=== PATIENT | female | born 1940 | race African-American/Black ===

== ENCOUNTER 2018-05-07 21:51 | Inpatient (IN) | payer MEDICARE, OTHER, MEDICAID ==
[2018-05-08] MEDS: SOD CHLORIDE 0.9% 500 ML IV (00:15)
[2018-05-08 01:03] LABS: ADD MAN DIFF? NO
[2018-05-08 01:08] LABS: WHITE BLOOD COUNT 6.2 10^3/ul (4.8-10.8)
[2018-05-08 01:08] LABS: ABNORMAL IP MESSAGE 1; BASOPHILS % 0.3 % (0.0-2.0); EOSINOPHILS % 0.2 % (0.0-7.0); HEMATOCRIT 47.6 % (37.0-47.0); HEMOGLOBIN 15.3 g/dl (12.0-16.0); LYMPHOCYTES # 0.4 10^3/ul (0.8-2.9); LYMPHOCYTES % 5.8 % (15.0-51.0); MEAN CORPUSCULAR HEMOGLOBIN 27.5 pg (29.0-33.0); MEAN CORPUSCULAR HGB CONC 32.1 g/dl (32.0-37.0); MEAN CORPUSCULAR VOLUME 85.5 fl (82.0-101.0); MEAN PLATELET VOLUME 11.3 fl (7.4-10.4); MONOCYTE # 0.3 10^3/ul (0.3-0.9); MONOCYTES % 4.5 % (0.0-11.0); NEUTROPHIL # 5.4 10^3/ul (1.6-7.5); NEUTROPHILS % 87.7 % (39.0-77.0); PLATELET COUNT 140 10^3/UL (140-415); RED BLOOD COUNT 5.57 10^6/ul (4.20-5.40); RED CELL DISTRIBUTION WIDTH 13.7 % (11.5-14.5)
[2018-05-08 01:09] LABS: POSITIVE DIFF @See below
[2018-05-08 01:26] LABS: INR 0.85; PROTIME 11.7 Sec (11.9-14.9); PT RATIO 0.9
[2018-05-08 01:27] LABS: PARTIAL THROMBOPLASTIN TIME 22.2 Sec (23.0-35.0)
[2018-05-08 01:39] LABS: ALANINE AMINOTRANSFERASE 37 IU/L (13-69); ALBUMIN/GLOBULIN RATIO 1.33; ALKALINE PHOSPHATASE 102 IU/L (42-121); ASPARTATE AMINO TRANSFERASE 16 IU/L (15-46); BILIRUBIN,INDIRECT 0.5 mg/dl (0-1.1); BILIRUBIN,TOTAL 0.5 mg/dl (0.2-1.3); BLOOD UREA NITROGEN 25 mg/dl (7-20); CALCIUM 10.9 mg/dl (8.4-10.2); CHLORIDE 92 mmol/L (97-110); GLUCOSE 352 mg/dl (70-220); POTASSIUM 3.1 mmol/L (3.5-5.1); SODIUM 145 mmol/L (135-144)
[2018-05-08 01:44] LABS: LACTIC ACID 2.2 mmol/L (0.5-2.0)
[2018-05-08 01:46] LABS: ANION GAP 8 (5-13)
[2018-05-08 01:49] LABS: CARBON DIOXIDE 45 mmol/L (21-31)
[2018-05-08 01:50] LABS: TROPONIN-I 0.026 ng/ml (0.000-0.120)
[2018-05-08 02:05] LABS: ACETAMINOPHEN < 10.0 ug/ml (10.0-30.0); ETHANOL < 10.0 mg/dl (0-0); SALICYLATE < 1.0 mg/dl (5.0-30.0)
[2018-05-08 02:21] LABS: URINE PH (Dip) POC >=9.0 (5.0-8.5)
[2018-05-08 02:21] LABS: URINE BLOOD (Dip) POC Trace-lysed (NEGATIVE); URINE KETONES (Dip) POC Negative (NEGATIVE); URINE LEUKOCYTE EST (Dip) POC Negative (NEGATIVE); URINE NITRITE (Dip) POC Negative (NEGATIVE); URINE TOTAL PROTEIN POC 2+ (NEGATIVE)
[2018-05-08] MEDS: CEFEPIME 2GM/50 ML (PMX) 50 ML IVPB (02:26)
[2018-05-08] MEDS: SODIUM CHLORIDE 0.9% 1L BAG IV* (02:27)
[2018-05-08 02:35] LABS: ADD UMIC YES; UR ASCORBIC ACID NEGATIVE (NEGATIVE); UR BACTERIA FEW /HPF (NONE SEEN); UR BILIRUBIN (Dip) NEGATIVE (NEGATIVE); UR BLOOD (Dip) NEGATIVE (NEGATIVE); UR CLARITY CLOUDY (CLEAR); UR COLOR YELLOW (YELLOW); UR GLUCOSE (Dip) 3+ mg/dL (NEGATIVE); UR KETONES (Dip) NEGATIVE (NEGATIVE); UR LEUKOCYTE ESTERASE (Dip) NEGATIVE Leu/ul (NEGATIVE); UR NITRITE (Dip) NEGATIVE (NEGATIVE); UR RBC 1 /HPF (0-5); UR SPECIFIC GRAVITY (Dip) 1.021 (1.003-1.030); UR TOTAL PROTEIN (Dip) 2+ mg/dl (NEGATIVE); UR UROBILINOGEN (Dip) NEGATIVE (NEGATIVE); UR WBC 4 /HPF (0-5)
[2018-05-08 02:49] LABS: AMPHETAMINE/METHAMPHETAMINE Negative (NEGATIVE); BARBITURATES Negative (NEGATIVE); BENZODIAZEPINES Negative (NEGATIVE); CANNABINOIDS Positive (NEGATIVE); COCAINE Negative (NEGATIVE); OPIATES Negative (NEGATIVE)
[2018-05-08] MEDS: VANCOMYCIN 1 GM (PMX) 250 ML IVPB (04:07)
[2018-05-08 04:27] LABS: LACTIC ACID 1.4 mmol/L (0.5-2.0)
[2018-05-08] MEDS ORDERED: DEXTROSE 50% 50 ML SYRINGE IV ×2 (04:30)
[2018-05-08] MEDS ORDERED: GLUCOSE GEL 15 GRAM TUBE PO ×2 (04:30)
[2018-05-08] MEDS ORDERED: GLUCOSE GEL 15 GRAM TUBE BUCCAL (04:30)
[2018-05-08] MEDS ORDERED: GLUCAGON 1 MG INJ IM (04:30)
[2018-05-08] MEDS ORDERED: NACL 0.9% 3 ML SYG IV (06:30)
[2018-05-08] MEDS ORDERED: ACETAMINOPHEN 325 MG TAB PO (06:30)
[2018-05-08 07:16] LABS: INR 0.97; PARTIAL THROMBOPLASTIN TIME 24.1 Sec (23.0-35.0)
[2018-05-08 07:31] LABS: LACTIC ACID 0.9 mmol/L (0.5-2.0)
[2018-05-08 07:36] LABS: HEMOGLOBIN A1C 9.1 % (0-5.9)
[2018-05-08 08:17] LABS: ALANINE AMINOTRANSFERASE 42 IU/L (13-69); ALBUMIN 2.9 g/dl (3.3-4.9); ALBUMIN/GLOBULIN RATIO 1.38; ALKALINE PHOSPHATASE 71 IU/L (42-121); ASPARTATE AMINO TRANSFERASE 11 IU/L (15-46); BILIRUBIN,INDIRECT 0.4 mg/dl (0-1.1); BILIRUBIN,TOTAL 0.4 mg/dl (0.2-1.3); BLOOD UREA NITROGEN 22 mg/dl (7-20); CALCIUM 9.7 mg/dl (8.4-10.2); CHLORIDE 100 mmol/L (97-110); CREATININE 0.51 mg/dl (0.44-1.00); GLUCOSE 275 mg/dl (70-220); SODIUM 146 mmol/L (135-144)
[2018-05-08 08:27] LABS: ANION GAP 3 (5-13)
[2018-05-08 08:29] LABS: POTASSIUM 2.5 mmol/L (3.5-5.1)
[2018-05-08 08:30] LABS: CARBON DIOXIDE 43 mmol/L (21-31)
[2018-05-08] MEDS: LOSARTAN 50 MG TAB PO (09:00)
[2018-05-08] MEDS: FOLIC ACID 0.4 MG TAB PO (09:00)
[2018-05-08] MEDS: INSULIN ASPART [NOVOLOG] 3 ML PEN SC ×4 (09:11→20:54)
[2018-05-08 10:25] LABS: AADO2 Arterial 15.9 mmHg (7.0-24.0); Allen Test ACCEPTAB; Arterial Base Excess 13.2 mmol/L (-3.0-3); Arterial Blood Gas Oxygen Sat 94.8 mmHG (95.0-100.0); Arterial COHb 0.2 % (0.0-3.0); Arterial Fraction of Oxyhgb 94.3 % (93.0-99.0); Arterial HCO3 38.4 mmol/L (22.0-26.0); Arterial MetHb 0.3 % (0.0-1.5); Arterial pCO2 50.8 mmhg (35-45); MODE ROOM AIR; Site Left Radial
[2018-05-08] MEDS: AMLODIPINE 10 MG TAB PO (10:45)
[2018-05-08] MEDS: 1/2 NS + KCL 20 MEQ 1,000 ML IV ×2 (10:45→17:00)
[2018-05-08] MEDS: POTASSIUM CHLORIDE 100 ML IVPB ×3 (11:45→15:13)
[2018-05-08] MEDS: hydrALAzine 20 MG INJ IV (15:13)
[2018-05-08 15:21] LABS: PHOSPHORUS 2.3 mg/dl (2.5-4.9)
[2018-05-08 15:21] LABS: MAGNESIUM 1.8 mg/dl (1.7-2.5)
[2018-05-08 15:23] LABS: AMMONIA 12 umol/l (9-30)
[2018-05-08 15:53] LABS: THYROID STIMULATING HORMONE 0.301 MIU/L (0.465-4.680)
[2018-05-08 18:13] LABS: ANION GAP 6 (5-13); BLOOD UREA NITROGEN 22 mg/dl (7-20); CALCIUM 9.6 mg/dl (8.4-10.2); CARBON DIOXIDE 36 mmol/L (21-31); CHLORIDE 100 mmol/L (97-110); CREATININE 0.49 mg/dl (0.44-1.00); GLUCOSE 305 mg/dl (70-220); POTASSIUM 3.5 mmol/L (3.5-5.1); SODIUM 142 mmol/L (135-144)
[2018-05-09] MEDS: hydrALAzine 20 MG INJ IV (00:16)
[2018-05-09] MEDS: 1/2 NS + KCL 20 MEQ 1,000 ML IV (01:27)
[2018-05-09] MEDS: ACCU-CHEK XX (01:51)
[2018-05-09] MEDS: morphine 2 MG INJ IV (05:46)
[2018-05-09 05:53] LABS: WHITE BLOOD COUNT 7.3 10^3/ul (4.8-10.8)
[2018-05-09 05:53] LABS: ABNORMAL IP MESSAGE 1; ADD MAN DIFF? NO; BASOPHILS % 0.1 % (0.0-2.0); HEMATOCRIT 36.6 % (37.0-47.0); HEMOGLOBIN 11.9 g/dl (12.0-16.0); LYMPHOCYTES # 0.4 10^3/ul (0.8-2.9); MEAN CORPUSCULAR HEMOGLOBIN 27.2 pg (29.0-33.0); MEAN CORPUSCULAR HGB CONC 32.5 g/dl (32.0-37.0); MEAN CORPUSCULAR VOLUME 83.6 fl (82.0-101.0); MEAN PLATELET VOLUME 11.3 fl (7.4-10.4); MONOCYTE # 0.3 10^3/ul (0.3-0.9); MONOCYTES % 4.5 % (0.0-11.0); NEUTROPHIL # 6.5 10^3/ul (1.6-7.5); PLATELET COUNT 121 10^3/UL (140-415); RED BLOOD COUNT 4.38 10^6/ul (4.20-5.40); RED CELL DISTRIBUTION WIDTH 13.9 % (11.5-14.5)
[2018-05-09 05:58] LABS: POSITIVE DIFF @See below
[2018-05-09 06:33] LABS: ALANINE AMINOTRANSFERASE 40 IU/L (13-69); ALBUMIN 2.8 g/dl (3.3-4.9); ALBUMIN/GLOBULIN RATIO 1.27; ALKALINE PHOSPHATASE 61 IU/L (42-121); ANION GAP 4 (5-13); ASPARTATE AMINO TRANSFERASE 15 IU/L (15-46); BILIRUBIN,INDIRECT 0.5 mg/dl (0-1.1); BILIRUBIN,TOTAL 0.5 mg/dl (0.2-1.3); BLOOD UREA NITROGEN 19 mg/dl (7-20); CALCIUM 9.1 mg/dl (8.4-10.2); CARBON DIOXIDE 38 mmol/L (21-31); CHLORIDE 99 mmol/L (97-110); CHOL/HDL RATIO 3.2 RATIO; CHOLESTEROL 146 mg/dl (100-200); GLUCOSE 213 mg/dl (70-220); HDL CHOLESTEROL 45 mg/dl (33-92); LDL CHOLESTEROL,CALCULATED 73 mg/dl; MAGNESIUM 1.7 mg/dl (1.7-2.5); SODIUM 141 mmol/L (135-144); TRIGLYCERIDES 138 mg/dl (0-149)
[2018-05-09 06:36] LABS: POTASSIUM 2.8 mmol/L (3.5-5.1)
[2018-05-09 06:46] LABS: FREE T3 1.83 pg/ml (2.77-5.27)
[2018-05-09 07:01] LABS: THYROID STIMULATING HORMONE 0.384 MIU/L (0.465-4.680)
[2018-05-09 07:16] LABS: FREE T4 (FREE THYROXINE) 0.54 ng/dl (0.85-1.93)
[2018-05-09] MEDS: INSULIN ASPART [NOVOLOG] 3 ML PEN SC ×6 (08:15→21:00)
[2018-05-09] MEDS: POTASSIUM CHLORIDE 100 ML IVPB ×3 (08:44→14:01)
[2018-05-09] MEDS: FOLIC ACID 0.4 MG TAB PO (08:44)
[2018-05-09] MEDS: AMLODIPINE 10 MG TAB PO (08:49)
[2018-05-09] MEDS: LISINOPRIL 20 MG TAB PO (08:50)
[2018-05-09 11:45] LABS: ANION GAP 4 (5-13); BLOOD UREA NITROGEN 22 mg/dl (7-20); CALCIUM 8.5 mg/dl (8.4-10.2); CARBON DIOXIDE 34 mmol/L (21-31); CHLORIDE 98 mmol/L (97-110); CREATININE 0.41 mg/dl (0.44-1.00); GLUCOSE 291 mg/dl (70-220); POTASSIUM 3.7 mmol/L (3.5-5.1); SODIUM 136 mmol/L (135-144)
[2018-05-09] MEDS: INSULIN GLARGINE [LANTus] (100 UNITS/ML) SYG SC (12:22)
[2018-05-09 18:17] LABS: ANION GAP 2 (5-13); BLOOD UREA NITROGEN 21 mg/dl (7-20); CALCIUM 9.9 mg/dl (8.4-10.2); CARBON DIOXIDE 37 mmol/L (21-31); CHLORIDE 100 mmol/L (97-110); CREATININE 0.53 mg/dl (0.44-1.00); GLUCOSE 225 mg/dl (70-220); POTASSIUM 3.6 mmol/L (3.5-5.1); SODIUM 139 mmol/L (135-144)
[2018-05-10 06:14] LABS: ADD MAN DIFF? NO
[2018-05-10 06:23] LABS: ABNORMAL IP MESSAGE 1; BASOPHILS % 0.1 % (0.0-2.0); HEMATOCRIT 37.5 % (37.0-47.0); HEMOGLOBIN 12.4 g/dl (12.0-16.0); LYMPHOCYTES # 0.4 10^3/ul (0.8-2.9); LYMPHOCYTES % 6.2 % (15.0-51.0); MEAN CORPUSCULAR HEMOGLOBIN 27.3 pg (29.0-33.0); MEAN CORPUSCULAR HGB CONC 33.1 g/dl (32.0-37.0); MEAN CORPUSCULAR VOLUME 82.6 fl (82.0-101.0); MEAN PLATELET VOLUME 11.2 fl (7.4-10.4); MONOCYTE # 0.3 10^3/ul (0.3-0.9); MONOCYTES % 4.7 % (0.0-11.0); NEUTROPHIL # 6.2 10^3/ul (1.6-7.5); NEUTROPHILS % 87.6 % (39.0-77.0); PLATELET COUNT 121 10^3/UL (140-415); RED BLOOD COUNT 4.54 10^6/ul (4.20-5.40); RED CELL DISTRIBUTION WIDTH 13.8 % (11.5-14.5)
[2018-05-10 06:23] LABS: WHITE BLOOD COUNT 7.1 10^3/ul (4.8-10.8)
[2018-05-10 06:51] LABS: ALANINE AMINOTRANSFERASE 29 IU/L (13-69); ALBUMIN 2.9 g/dl (3.3-4.9); ALBUMIN/GLOBULIN RATIO 1.31; ALKALINE PHOSPHATASE 59 IU/L (42-121); ANION GAP 2 (5-13); ASPARTATE AMINO TRANSFERASE 17 IU/L (15-46); BILIRUBIN,INDIRECT 0.6 mg/dl (0-1.1); BILIRUBIN,TOTAL 0.6 mg/dl (0.2-1.3); BLOOD UREA NITROGEN 20 mg/dl (7-20); CALCIUM 9.2 mg/dl (8.4-10.2); CARBON DIOXIDE 37 mmol/L (21-31); CHLORIDE 100 mmol/L (97-110); CREATININE 0.42 mg/dl (0.44-1.00); GLUCOSE 136 mg/dl (70-220); SODIUM 139 mmol/L (135-144); TOTAL PROTEIN 5.1 g/dl (6.1-8.1)
[2018-05-10 06:57] LABS: POTASSIUM 2.9 mmol/L (3.5-5.1)
[2018-05-10] MEDS: INSULIN ASPART [NOVOLOG] 3 ML PEN SC ×6 (07:48→17:12)
[2018-05-10] MEDS: INSULIN GLARGINE [LANTus] (100 UNITS/ML) SYG SC (07:53)
[2018-05-10] MEDS: FOLIC ACID 0.4 MG TAB PO (08:13)
[2018-05-10] MEDS: AMLODIPINE 10 MG TAB PO (08:14)
[2018-05-10] MEDS: LISINOPRIL 20 MG TAB PO (08:14)
[2018-05-10] MEDS: POTASSIUM CHLORIDE 100 ML IVPB (09:20)
[2018-05-10 09:53] LABS: MAGNESIUM 1.9 mg/dl (1.7-2.5)
[2018-05-10] MEDS: POTASSIUM CHLORIDE 20 MEQ POWDER FOR ORAL SOLN PO (12:12)
[2018-05-10 14:18] LABS: ANION GAP 7 (5-13); BLOOD UREA NITROGEN 21 mg/dl (7-20); CALCIUM 9.9 mg/dl (8.4-10.2); CARBON DIOXIDE 34 mmol/L (21-31); CHLORIDE 98 mmol/L (97-110); CREATININE 0.46 mg/dl (0.44-1.00); GLUCOSE 242 mg/dl (70-220); SODIUM 139 mmol/L (135-144)
[2018-05-10] MEDS: hydrALAzine 20 MG INJ IV (22:49)
[2018-05-11] MEDS: INSULIN ASPART [NOVOLOG] 3 ML PEN SC ×9 (02:04→21:44)
[2018-05-11 05:19] LABS: ADD MAN DIFF? NO
[2018-05-11 05:27] LABS: ABNORMAL IP MESSAGE 1; BASOPHILS % 0.1 % (0.0-2.0); HEMATOCRIT 36.4 % (37.0-47.0); HEMOGLOBIN 12.3 g/dl (12.0-16.0); LYMPHOCYTES # 0.4 10^3/ul (0.8-2.9); MEAN CORPUSCULAR HEMOGLOBIN 27.6 pg (29.0-33.0); MEAN CORPUSCULAR HGB CONC 33.8 g/dl (32.0-37.0); MEAN CORPUSCULAR VOLUME 81.8 fl (82.0-101.0); MEAN PLATELET VOLUME 12.8 fl (7.4-10.4); MONOCYTE # 0.3 10^3/ul (0.3-0.9); MONOCYTES % 4.3 % (0.0-11.0); NEUTROPHIL # 6.5 10^3/ul (1.6-7.5); NEUTROPHILS % 88.5 % (39.0-77.0); PLATELET COUNT 95 10^3/UL (140-415); RED BLOOD COUNT 4.45 10^6/ul (4.20-5.40); RED CELL DISTRIBUTION WIDTH 13.8 % (11.5-14.5)
[2018-05-11 05:27] LABS: WHITE BLOOD COUNT 7.3 10^3/ul (4.8-10.8)
[2018-05-11 05:32] LABS: POSITIVE DIFF @See below
[2018-05-11 06:29] LABS: ALANINE AMINOTRANSFERASE 38 IU/L (13-69); ALBUMIN 2.9 g/dl (3.3-4.9); ALBUMIN/GLOBULIN RATIO 1.16; ALKALINE PHOSPHATASE 44 IU/L (42-121); ANION GAP 2 (5-13); ASPARTATE AMINO TRANSFERASE 32 IU/L (15-46); BILIRUBIN,INDIRECT 0.5 mg/dl (0-1.1); BILIRUBIN,TOTAL 0.5 mg/dl (0.2-1.3); BLOOD UREA NITROGEN 21 mg/dl (7-20); CALCIUM 9.5 mg/dl (8.4-10.2); CARBON DIOXIDE 36 mmol/L (21-31); CHLORIDE 99 mmol/L (97-110); CREATININE 0.44 mg/dl (0.44-1.00); GLUCOSE 163 mg/dl (70-220); POTASSIUM 3.7 mmol/L (3.5-5.1); SODIUM 137 mmol/L (135-144); TOTAL PROTEIN 5.4 g/dl (6.1-8.1)
[2018-05-11] MEDS: hydrALAzine 20 MG INJ IV ×2 (07:46→20:36)
[2018-05-11] MEDS: INSULIN GLARGINE [LANTus] (100 UNITS/ML) SYG SC (07:55)
[2018-05-11] MEDS: FOLIC ACID 0.4 MG TAB PO (08:48)
[2018-05-11] MEDS: AMLODIPINE 10 MG TAB PO (08:49)
[2018-05-11] MEDS: LISINOPRIL 20 MG TAB PO (08:49)
[2018-05-12 06:32] LABS: ADD MAN DIFF? NO
[2018-05-12 06:41] LABS: ABNORMAL IP MESSAGE 1; BASOPHILS % 0.1 % (0.0-2.0); HEMATOCRIT 34.9 % (37.0-47.0); HEMOGLOBIN 11.7 g/dl (12.0-16.0); LYMPHOCYTES # 0.3 10^3/ul (0.8-2.9); LYMPHOCYTES % 5.1 % (15.0-51.0); MEAN CORPUSCULAR HEMOGLOBIN 27.5 pg (29.0-33.0); MEAN CORPUSCULAR HGB CONC 33.5 g/dl (32.0-37.0); MEAN CORPUSCULAR VOLUME 81.9 fl (82.0-101.0); MEAN PLATELET VOLUME 11.4 fl (7.4-10.4); MONOCYTE # 0.4 10^3/ul (0.3-0.9); MONOCYTES % 5.2 % (0.0-11.0); NEUTROPHIL # 5.9 10^3/ul (1.6-7.5); NEUTROPHILS % 88.3 % (39.0-77.0); PLATELET COUNT 113 10^3/UL (140-415); RED BLOOD COUNT 4.26 10^6/ul (4.20-5.40); RED CELL DISTRIBUTION WIDTH 13.8 % (11.5-14.5)
[2018-05-12 06:41] LABS: WHITE BLOOD COUNT 6.7 10^3/ul (4.8-10.8)
[2018-05-12 06:50] LABS: POSITIVE DIFF @See below
[2018-05-12 06:52] LABS: ALANINE AMINOTRANSFERASE 39 IU/L (13-69); ALBUMIN 2.7 g/dl (3.3-4.9); ALBUMIN/GLOBULIN RATIO 1.22; ALKALINE PHOSPHATASE 67 IU/L (42-121); ANION GAP 1 (5-13); ASPARTATE AMINO TRANSFERASE 22 IU/L (15-46); BILIRUBIN,INDIRECT 0.4 mg/dl (0-1.1); BILIRUBIN,TOTAL 0.4 mg/dl (0.2-1.3); BLOOD UREA NITROGEN 22 mg/dl (7-20); CALCIUM 9.6 mg/dl (8.4-10.2); CARBON DIOXIDE 38 mmol/L (21-31); CHLORIDE 100 mmol/L (97-110); CREATININE 0.58 mg/dl (0.44-1.00); GLUCOSE 183 mg/dl (70-220); POTASSIUM 3.1 mmol/L (3.5-5.1); SODIUM 139 mmol/L (135-144); TOTAL PROTEIN 4.9 g/dl (6.1-8.1)
[2018-05-12 07:05] LABS: T4 (THYROXINE) 2.7 ug/dl (5.5-11.0)
[2018-05-12 07:19] LABS: TRIIODOTHYRONINE 0.42 ng/ml (0.97-1.69)
[2018-05-12] MEDS: INSULIN GLARGINE [LANTus] (100 UNITS/ML) SYG SC (08:01)
[2018-05-12] MEDS: INSULIN ASPART [NOVOLOG] 3 ML PEN SC ×7 (08:02→21:00)
[2018-05-12] MEDS: AMLODIPINE 10 MG TAB PO (08:30)
[2018-05-12] MEDS: FOLIC ACID 0.4 MG TAB PO (08:30)
[2018-05-12] MEDS: LISINOPRIL 20 MG TAB PO (08:30)
[2018-05-12] MEDS: metFORMIN 500 MG TAB PO ×2 (09:24→17:13)
[2018-05-12] MEDS: LINAGLIPTIN 5 MG TABLET PO (09:25)
[2018-05-12] MEDS: BALSAM PERU/CASTOR OIL 60 GM TUBE TOP ×2 (14:24→21:11)
[2018-05-12] MEDS: POTASSIUM CHLORIDE 20 MEQ POWDER FOR ORAL SOLN PO ×2 (14:24→17:12)
[2018-05-13] MEDS: LINAGLIPTIN 5 MG TABLET PO (07:30)
[2018-05-13] MEDS: metFORMIN 500 MG TAB PO ×2 (07:30→16:50)
[2018-05-13] MEDS: AMLODIPINE 10 MG TAB PO (07:30)
[2018-05-13] MEDS: FOLIC ACID 0.4 MG TAB PO (07:30)
[2018-05-13] MEDS: LISINOPRIL 20 MG TAB PO (07:31)
[2018-05-13] MEDS: BALSAM PERU/CASTOR OIL 60 GM TUBE TOP ×2 (07:31→20:53)
[2018-05-13] MEDS: INSULIN ASPART [NOVOLOG] 3 ML PEN SC ×7 (07:43→20:53)
[2018-05-13] MEDS: INSULIN GLARGINE [LANTus] (100 UNITS/ML) SYG SC (07:43)
[2018-05-14 06:41] LABS: ANION GAP 6 (5-13); BLOOD UREA NITROGEN 26 mg/dl (7-20); CALCIUM 9.9 mg/dl (8.4-10.2); CARBON DIOXIDE 34 mmol/L (21-31); CHLORIDE 101 mmol/L (97-110); CREATININE 0.43 mg/dl (0.44-1.00); GLUCOSE 106 mg/dl (70-220); POTASSIUM 4.2 mmol/L (3.5-5.1); SODIUM 141 mmol/L (135-144)
[2018-05-14] MEDS: INSULIN ASPART [NOVOLOG] 3 ML PEN SC ×7 (08:00→21:00)
[2018-05-14] MEDS: FOLIC ACID 0.4 MG TAB PO (08:20)
[2018-05-14] MEDS: LINAGLIPTIN 5 MG TABLET PO (08:21)
[2018-05-14] MEDS: metFORMIN 500 MG TAB PO ×2 (08:21→17:59)
[2018-05-14] MEDS: BALSAM PERU/CASTOR OIL 60 GM TUBE TOP ×2 (08:22→21:03)
[2018-05-14] MEDS: AMLODIPINE 10 MG TAB PO (08:22)
[2018-05-14] MEDS: LISINOPRIL 20 MG TAB PO (08:22)
[2018-05-14] MEDS: INSULIN GLARGINE [LANTus] (100 UNITS/ML) SYG SC (12:52)
[2018-05-14] MEDS: hydrALAzine 20 MG INJ IV (14:38)
[2018-05-15] MEDS: INSULIN ASPART [NOVOLOG] 3 ML PEN SC ×6 (08:00→17:45)
[2018-05-15] MEDS: metFORMIN 500 MG TAB PO ×2 (09:25→17:32)
[2018-05-15] MEDS: LISINOPRIL 20 MG TAB PO (09:25)
[2018-05-15] MEDS: LINAGLIPTIN 5 MG TABLET PO (09:25)
[2018-05-15] MEDS: FOLIC ACID 0.4 MG TAB PO (09:26)
[2018-05-15] MEDS: AMLODIPINE 10 MG TAB PO (09:26)
[2018-05-15] MEDS: BALSAM PERU/CASTOR OIL 60 GM TUBE TOP (09:30)
[2018-05-15] MEDS: INSULIN GLARGINE [LANTus] (100 UNITS/ML) SYG SC (09:35)
[2018-05-15] MEDS: ENOXAPARIN 40 MG/0.4 ML SYG SC (09:35)
[2018-05-15] MEDS: hydrALAzine 20 MG INJ IV (17:58)
[2018-05-15] MEDS: LABETALOL HCL 20MG INJ IV (19:01)
== END 2018-05-15 20:20 | DRG 71 ==
LOC: E/R 21:51 → 6WM 05-08 03:41
DX: G93.49 Other encephalopathy (principal); E87.2 Acidosis; G91.2 (Idiopathic) normal pressure hydrocephalus; E44.0 Moderate protein-calorie malnutrition; Z68.1 Body mass index [BMI] 19.9 or less, adult; G91.9 Hydrocephalus, unspecified; E87.3 Alkalosis; G81.94 Hemiplegia, unspecified affecting left nondominant side; E87.6 Hypokalemia; I10 Essential (primary) hypertension; E86.0 Dehydration; F03.90 Unspecified dementia, unspecified severity, without behavioral disturbance, psychotic disturbance, mood disturbance, and anxiety; Z98.2 Presence of cerebrospinal fluid drainage device; E11.65 Type 2 diabetes mellitus with hyperglycemia; E07.81 Sick-euthyroid syndrome; Z86.73 Personal history of transient ischemic attack (TIA), and cerebral infarction without residual deficits
CPT/HCPCS: 36415; 36600; 70250; 70260; 70450; 70553; 71045; 76856; 80048; 80053; 80061; 80307; 81001; 81003; 82140; 82533; 82607; 82803; 82962; 83036; 83605; 83735; 84100; 84436; 84439; 84443; 84480; 84481; 84484; 85025; 85610; 85730; 87040-91; 87086; 92526; 92610; 93005; 93971; 95819; 96374; 97110; 97162; 97165; 97530; 97535; 99285-25